=== PATIENT | female | born 1995 | race Caucasian/White ===

== ENCOUNTER 2017-05-26 22:42 | Emergency (ER) | payer OTHER ==
[2017-05-26] MEDS ORDERED: Aspirin Low Dose CHEW TAB* 81 MG PO ONE (23:11)
[2017-05-27 00:15] LABS: ALT 18 U/L (7-52); AST 26 U/L (13-39); Albumin 4.4 g/dL (3.2-5.2); Alkaline Phosphatase 43 U/L (34-104); Anion Gap 8 mmol/L (2-11); BUN/Creatinine Ratio 10.4 (8-20); Blood Urea Nitrogen 8 mg/dL (6-24); CO2 Carbon Dioxide 27 mmol/L (22-32); Chloride 101 mmol/L (101-111); EGFR African American 121.7 (>60); EGFR Non-African American 94.6 (>60); Globulin 3.2 g/dL (2-4); Glucose 95 mg/dL (70-100); Hematocrit 40 % (35-47); Hemoglobin 13.9 g/dl (12.0-16.0); Mean Corpuscular HGB Conc 34 g/dl (31-36); Mean Corpuscular Hemoglobin 31 pg (27-31); Mean Corpuscular Volume 89 fL (80-97); Mean Platelet Volume 8 um3 (7.4-10.4); Potassium 3.7 mmol/L (3.5-5.0); Red Blood Count 4.55 10^6/ul (4.0-5.4); Red Cell Distribution Width 13 % (10.5-15); Sodium 136 mmol/L (133-145); Total Protein 7.6 g/dL (6.4-8.9); White Blood Count 9.8 10^3/ul (3.5-10.8)
[2017-05-27] MEDS ORDERED: NS 0.9% 1000 ML* 1,000 ML IV ONE (01:34)
[2017-05-27] MEDS ORDERED: Iohexol 350* (CONTRAST) 500 ML MDV IV ONE (01:47)
[2017-05-27 03:12] VITALS: BP 114/53
--- NOTE | 2017-05-27 03:13 | ED ---
Pepper Wilson Rebecca, scribed for Britton Epperson on 05/27/17 at 0137 . HPI Chest Pain - HPI Summary HPI Summary: Pt is a 22 y/o F who presents to ED c/o CP. Pain began last night at approximately 2130, a few minutes after taking Zoloft, and has been constant since onset. Pain is in the midsternum with radiation to the back and is currently severe, ranked 8/10. Initially, the pt believed the pain was indigestion as she sometimes gets heart burn from her Zoloft. Additionally c/o N /V, vomiting 1x MONITORING TECH. Denies abdominal pain. PMHx anxiety. Is on oral contraceptives. - History of Current Complaint Chief Complaint: EDChestPainROMI Time Seen by Provider: 05/26/17 23:20 Hx Obtained From: Patient Onset/Duration: Still Present Time of Onset: 21:30 Timing: Constant Current Severity: Severe Pain Intensity: 8 Pain Scale Used: 0-10 Numeric Chest Pain Location: Mid Sternal Chest Pain Radiates: Yes Chest Pain Radiates To:: Back Aggravating Factor(s): Nothing Alleviating Factor(s): Nothing Associated Signs and Symptoms: Positive: Nausea, Vomiting. Negative: Abdominal Pain - Allergy/Home Medications Allergies/Adverse Reactions: Allergies Allergy/AdvReac Type Severity Reaction Status Date / Time No Known Allergies Allergy Verified 05/26/17 22:53 PMH/Surg Hx/FS Hx/Imm Hx Respiratory History: Reports: Other Respiratory Problems/Disorders - Hx Asthmatic bronchitis GI History: Reports: Hx Irritable Bowel Psychiatric History: Reports: Hx Anxiety Infectious Disease History: No Infectious Disease History: Denies: Traveled Outside the [place] in Last 30 Days - Family History Known Family History: Positive: Cardiac Disease - Father [place] in 30s, Other - seizure - father - Social History Alcohol Use: Weekly Substance Use Type: Reports: Marijuana Smoking Status (MU): Never Smoked Tobacco Review of Systems Positive: Chest Pain - midsternal with radiation to the back Positive: Vomiting, Nausea. Negative: Abdominal Pain All Other Systems Reviewed And Are Negative: Yes Physical Exam - Summary Physical Exam Summary: Appearance: Well appearing, no pain distress Skin: warm, dry, reflects adequate perfusion Head/face: normal Eyes: EOMI, KIM ENT: normal Neck: supple, nontender Respiratory: CTA, breath sounds present Cardiovascular: RRR, pulses symmetrical Abdomen: nontender, soft Bowel: present Musculoskeletal: normal, strength/ROM intact Neuro: normal, sensory motor intact, A&Ox3 Triage Information Reviewed: Yes Vital Signs On Initial Exam: Initial Vitals Temp Pulse Resp BP Pulse Ox 97.9 F 82 16 134/98 100 05/26/17 22:51 05/26/17 22:51 05/26/17 22:51 05/26/17 22:51 05/26/17 22:51 Vital Signs Reviewed: Yes Diagnostics - Vital Signs Vital Signs Temp Pulse Resp BP Pulse Ox 05/27/17 00:54 98.6 F 70 18 123/68 99 05/26/17 22:54 97.9 F 82 16 134/98 100 05/26/17 22:51 97.9 F 82 16 134/98 100 - Laboratory Lab Results: Lab Results 05/26/17 05/26/17 05/26/17 Range/Units 23:45 23:45 23:45 WBC 9.8 (3.5-10.8) 10^3/ul RBC 4.55 (4.0-5.4) 10^6/ul Hgb 13.9 (12.0-16.0) g/dl Hct 40 (35-47) % MCV 89 (80-97) fL MCH 31 (27-31) pg MCHC 34 (31-36) g/dl RDW 13 (10.5-15) % Plt Count 299 (150-450) 10^3/ul MPV 8 (7.4-10.4) um3 Neut % (Auto) 71.2 (38-83) % Lymph % (Auto) 19.5 L (25-47) % Mellette % (Auto) 6.7 (1-9) % Eos % (Auto) 2.1 (0-6) % Baso % (Auto) 0.5 (0-2) % Absolute Neuts (auto) 7.0 (1.5-7.7) 10^3/ul Absolute Lymphs (auto) 1.9 (1.0-4.8) 10^3/ul Absolute Monos (auto) 0.7 (0-0.8) 10^3/ul Absolute Eos (auto) 0.2 (0-0.6) 10^3/ul Absolute Basos (auto) 0 (0-0.2) 10^3/ul Absolute Nucleated RBC 0.01 10^3/ul Nucleated RBC % 0.1 D-Dimer, Quantitative 259 H (Less Than 230) ng/mL Sodium 136 (133-145) mmol/L Potassium 3.7 (3.5-5.0) mmol/L Chloride 101 (101-111) mmol/L Carbon Dioxide 27 (22-32) mmol/L Anion Gap 8 (2-11) mmol/L BUN 8 (6-24) mg/dL Creatinine 0.77 (0.51-0.95) mg/dL Est GFR ( Amer) 121.7 (>60) Est GFR (Non-Af Amer) 94.6 (>60) BUN/Creatinine Ratio 10.4 (8-20) Glucose 95 (70-100) mg/dL Calcium 10.0 (8.6-10.3) mg/dL Total Bilirubin 0.40 (0.2-1.0) mg/dL AST 26 (13-39) U/L ALT 18 (7-52) U/L Alkaline Phosphatase 43 (34-104) U/L Troponin I 0.00 (<0.04) ng/mL Total Protein 7.6 (6.4-8.9) g/dL Albumin 4.4 (3.2-5.2) g/dL Globulin 3.2 (2-4) g/dL Albumin/Globulin Ratio 1.4 (1-3) Beta HCG, Quant < 0.60 mIU/mL Result Diagrams: 05/26/17 23:45 05/26/17 23:45 Lab Statement: Any lab studies that have been ordered have been reviewed, and results considered in the medical decision making process. - Radiology CXR Xray Interpretation: No Acute Changes Radiology Interpretation Completed By: ED Physician - CT CTA Chest CT Interpretation: No Acute Changes - Normal exam. CT Interpretation Completed By: Radiologist - EKG 6851 Cardiac Rate: NL - 69 bpm EKG Rhythm: Sinus Rhythm EKG Interpretation: No acute changes Re-Evaluation - Re-Evaluation First Eval Re-Evaluation Time: 02:37 Change: Improved Comment: Discussed results and D/C plan. Chest Pain Course/Dx - Course Assessment/Plan: Pt is a 22 y/o F who presents to ED c/o CP. Pain began last night at approximately 2130, a few minutes after taking Zoloft, and has been constant since onset. Pain is in the midsternum with radiation to the back and is currently severe, ranked 8/10. Initially, the pt believed the pain was indigestion as she sometimes gets heart burn from her Zoloft. Additionally c/o N /V, vomiting 1x MONITORING TECH. Denies abdominal pain. PMHx anxiety. Is on oral contraceptives. D-Dimer of 259. CTA Chest, CXR reveal no acute findings. EKG is sinus rhythm with no acute changes. In the ED course, pt was given ASA and fluids. She will be D/C to home with Dx of atypical chest pain, Rx for Motrin and a follow up with her PCP. She understands and agrees. Eleavted BP noted and advised to f/u with PCP. - Diagnoses Provider Diagnoses: Atypical chest pain Discharge - Discharge Plan Condition: Stable Disposition: HOME Prescriptions: Ibuprofen TAB* [Motrin TAB* 600 MG] 600 mg PO Q8H PRN #20 tab MDD 3 PRN Reason: Pain Patient Education Materials: Chest Pain (ED) Referrals: [facility] [Primary Care Provider] - 3 Days The documentation as recorded by the Pepper williamson Rebecca accurately reflects the service I personally performed and the decisions made by , Britton Epperson.
--- NOTE | 2017-05-27 07:35 | RAD ---
INDICATION: Chest pain. COMPARISON: There are no prior studies available for comparison. TECHNIQUE: Dual-energy PA and lateral views of the chest were obtained. FINDINGS: The heart is within normal limits in size. Mediastinal and hilar contours appear within normal limits. The lungs are clear. No pleural effusion is present. IMPRESSION: NO EVIDENCE FOR ACTIVE CARDIOPULMONARY DISEASE.
--- NOTE | 2017-05-27 07:52 | RAD ---
Indication: Chest pain, positive d-dimer. Contrast: Administered 61.2 ml of OMNIPAQUE 350 mg/ml CTA of the chest was performed after IV contrast administration. Coronal and sagittal reconstructed images were obtained. The pulmonary arterial tree is well opacified. There are no filling defects present to suggest pulmonary embolus. There is no mediastinal or hilar adenopathy. Inferior thyroid lobes are unremarkable. Aorta demonstrates no evidence of aneurysmal dilatation or aortic dissection. The trachea and major bronchi appear patent. The lung griffin demonstrate no evidence of alveolar consolidation. No pleural fluid is identified. No alveolar consolidation is noted. The visualized abdominal organs are unremarkable. IMPRESSION: No definite evidence of pulmonary masses noted.
== END 2017-05-27 03:12 | disposition home or self-care (01) ==
LOC: ED 22:42
DX: R07.89 Other chest pain (principal); R11.2 Nausea with vomiting, unspecified
CPT/HCPCS: 36415; 71020; 71275; 80053; 84484; 84702; 85025; 85379; 93005; 99282; Q9967